=== PATIENT | male | born 1990 | race Caucasian/White ===

== ENCOUNTER 2016-03-18 12:10 | Emergency (ER) | payer SELFPAY ==
[2016-03-18 14:21] LABS: BASOPHILS 0.3 % (0.0-2.0); EOSINOPHILS 2.3 % (0-7); HEMATOCRIT 44.5 % (42.0-54.0); IMMATURE GRANULOCYTES 0.3 % (0-5); LYMPHOCYTES 23.7 % (15-50); MCH 29.8 pg (26.0-34.0); MCHC 33.7 g/dL (31.0-37.0); MCV 88.5 fL (80.0-100.0); MONOCYTES 9.2 % (2-11); NEUTROPHILS 64.2 % (40-80); PLATELET COUNT 291 10x3/uL (130-400); RBC 5.03 10x6/uL (4.20-6.10); RDW 12.8 % (11.5-14.5); WBC 15.6 10x3/uL (4.8-10.8)
[2016-03-18 14:28] LABS: ALBUMIN 4.1 g/dL (3.4-5.0); ALKALINE PHOSPHATASE 54 U/L (46-116); ALT (SGPT) 21 U/L (10-68); AMYLASE - SERUM 43 U/L (25-115); BILIRUBIN - TOTAL 0.86 mg/dL (0.2-1.3); CALC OSMOLALITY 278 mosm/kg (275-300); CALCIUM 9.1 mg/dL (8.5-10.1); CARBON DIOXIDE 29.7 mmol/L (21.0-32.0); CHLORIDE - SERUM 101 mmol/L (98-107); GLUCOSE 83 mg/dL (74-106); LIPASE 62 U/L (73-393); POTASSIUM - SERUM 3.9 mmol/L (3.5-5.1); PROTEIN - SERUM 7.9 g/dL (6.4-8.2); SODIUM 139 mmol/L (136-145); UREA NITROGEN 18 mg/dL (7-18); eGFR NON AFRICAN AMERICAN > 90 mL/min (90-120)
== END 2016-03-18 15:30 | disposition home or self-care (01) ==
LOC: D.ER 12:10
PROVIDERS: Physician Assistant
DX: A08.4 Viral intestinal infection, unspecified (principal); F17.200 Nicotine dependence, unspecified, uncomplicated

== ENCOUNTER 2016-05-04 14:25 | Inpatient (IN) | payer SELFPAY ==
[~2016-05-04] VITALS: Ht 170.2 cm; Wt 56.8 kg
[2016-05-04 17:23] LABS: HEMATOCRIT 40.2 % (42.0-54.0); HEMOGLOBIN 13.5 g/dL (13.5-17.5); MCH 29.7 pg (26.0-34.0); MCHC 33.6 g/dL (31.0-37.0); MCV 88.5 fL (80.0-100.0); MEAN PLATELET VOLUME 8.4 fL (7.4-10.4); PLATELET COUNT 257 10x3/uL (130-400); RBC 4.54 10x6/uL (4.20-6.10); RDW 12.9 % (11.5-14.5); WBC 28.3 10x3/uL (4.8-10.8)
[2016-05-04 17:27] LABS: APPEARANCE CLEAR (CLEAR); COLOR YELLOW (YELLOW); GLUCOSE NEGATIVE (NEGATIVE); KETONE NEGATIVE (NEGATIVE); LEUKOCYTE ESTERASE NEGATIVE (NEGATIVE); NITRITE NEGATIVE (NEGATIVE); PROTEIN NEGATIVE (NEGATIVE); UROBILINOGEN NORMAL (NORMAL)
[2016-05-04 17:28] LABS: BACTERIA FEW /hpf (NONE SEEN); BILIRUBIN NEGATIVE (NEGATIVE); RED CELLS - URINE 0-5 /hpf (0-5); WHITE CELLS - URINE 0-5 /hpf (0-5)
[2016-05-04 17:37] LABS: ALBUMIN 3.6 g/dL (3.4-5.0); ALKALINE PHOSPHATASE 55 U/L (46-116); ALT (SGPT) 33 U/L (10-68); BILIRUBIN - TOTAL 0.47 mg/dL (0.2-1.3); CALC OSMOLALITY 263 mosm/kg (275-300); CALCIUM 9.1 mg/dL (8.5-10.1); CARBON DIOXIDE 28.4 mmol/L (21.0-32.0); CHLORIDE - SERUM 94 mmol/L (98-107); GLUCOSE 106 mg/dL (74-106); POTASSIUM - SERUM 3.8 mmol/L (3.5-5.1); PROTEIN - SERUM 7.2 g/dL (6.4-8.2); SODIUM 132 mmol/L (136-145); UREA NITROGEN 9 mg/dL (7-18); eGFR NON AFRICAN AMERICAN > 90 mL/min (90-120)
[2016-05-04 17:40] LABS: EOSINOPHILS 2 % (0-7); LYMPHOCYTES 16 % (15-50); MONOCYTES 14 % (2-11); NEUTROPHILS 68 % (40-80); PLATELET ESTIMATE NORMAL
--- NOTE | 2016-05-04 22:35 | NUR ---
RECEIVED PATIENT FROM THE ER.
[2016-05-04 22:53] VITALS: BP 108/59; Ht 170.2 cm; Wt 56.8 kg
[2016-05-05 04:55] LABS: BASOPHILS 0.2 % (0.0-2.0); EOSINOPHILS 0.7 % (0-7); HEMATOCRIT 44.1 % (42.0-54.0); HEMOGLOBIN 14.4 g/dL (13.5-17.5); IMMATURE GRANULOCYTES 0.2 % (0-5); LYMPHOCYTES 24.5 % (15-50); MCH 29.3 pg (26.0-34.0); MCHC 32.7 g/dL (31.0-37.0); MCV 89.6 fL (80.0-100.0); MEAN PLATELET VOLUME 9.3 fL (7.4-10.4); MONOCYTES 15.7 % (2-11); NEUTROPHILS 58.7 % (40-80); PLATELET COUNT 259 10x3/uL (130-400); RBC 4.92 10x6/uL (4.20-6.10); RDW 12.9 % (11.5-14.5); WBC 20.2 10x3/uL (4.8-10.8)
[2016-05-05 05:25] LABS: CALC OSMOLALITY 275 mosm/kg (275-300); CARBON DIOXIDE 27.9 mmol/L (21.0-32.0); CHLORIDE - SERUM 99 mmol/L (98-107); CREATININE - SERUM 0.9 mg/dL (0.6-1.3); GLUCOSE 109 mg/dL (74-106); POTASSIUM - SERUM 4.1 mmol/L (3.5-5.1); SODIUM 137 mmol/L (136-145); eGFR NON AFRICAN AMERICAN > 90 mL/min (90-120)
[2016-05-05 05:26] LABS: UREA NITROGEN 14 mg/dL (7-18)
--- NOTE | 2016-05-05 08:25 | NUR ---
AWAKE AND ALERT. ORIENTED X3. NO C/O AT THIS TIME. LUNGS ARE CLEAR BUT DIMINISHED THROUGHTOUT. OCCASSIONAL DRY COUGH NOTED. SKIN IS INTACT WITHOUT REDNESS EXCEPT SCABBED AREAS TO LEFT ARM WHICH ARE REPORTED FROM A HORSE BITE. IV TO RIGHT FOREARM PATENT WITHOUT REDNESS AT ISNERTION SITE. BREAKFAST SERVED IN ROOM.
[2016-05-05 08:33] VITALS: BP 108/53
--- NOTE | 2016-05-05 10:30 | NUR ---
RESTING QUIETLY IN BED. NO C/O PAIN OR DISCOMFORT AT THIS TIME.
[2016-05-05 12:50] VITALS: BP 107/53
--- NOTE | 2016-05-05 13:55 | NUR ---
Patient Name: SANDRA NICOLE Admission Status: ER Accout number: [id number] Admission Date: 05-04-2016 : 1990 Admission Diagnosis: Attending: TACO Current LOS: 1 Anticipated DC Date: 05-08-2016 Planned Disposition: Home Primary Insurance: UNINSURED DISCOUNT PLAN Discharge Planning Comments: CM MET WITH PATIENT, FIDYAN (JUSTEN), AND BROTHER (BELÉN) REGARDING D/C NEEDS AND PLANS. PATIENTS BROTHER STATED THERE ARE 7 STEPS W/RAILS TO ENTER PATIENTS HOME AND NO STAIRS INSIDE. PATIENT STATED HE IS INDEPENDENT WITH HIS CARE AND HAS NO DME. PATIENT DOES NOT HAVE A PCP AND USES [facility] [address] FOR HIS PHARMACY. PATIENT STATED HE HAS NOT HAD HOME HEALTH BEFORE AND DOES NOT NEED IT. BROTHER STATED HE WILL BE THE ONE TO DRIVE HIM HOME WHEN DISCHARGED. CM WILL CONTINUE TO FOLLOW PATIENT WITH D/C NEEDS AND PLANS. PCP NONE [facility] [address]- [phone] BELÉN MARTINS (BROTHER) [phone] JUSTEN (NISH) [phone] [employer] Dis[employer] Specialist: Agatha Shipman Is the patient Alert and Oriented? Yes 0 * How many steps to enter\exit or inside your home? 7 W/RAILS 0 * PCP NONE 0 * Pharmacy [facility] [address] 0 * Preadmission Environment Home with Family 0 * ADLs Independent 0 * Equipment None 0 * List name and contact numbers for known caregivers / representatives who currently or will assist patient after discharge: JUSTEN DanielNISH) [phone] BELÉN MARTINS (BROTHER) [phone] 0 * Community resources currently utilized None 0 * Additional services required to return to the preadmission environment? Yes 0 * Can the patient safely return to the preadmission environment? Yes 0 * Has this patient been hospitalized within the prior 30 days at any hospital? No 0 Grand Total: 0
--- NOTE | 2016-05-05 16:13 | NUR ---
RESTING QUIETLY IN BED. NO C/O AT THIS TIME.
[2016-05-05 17:33] VITALS: BP 105/46
--- NOTE | 2016-05-05 18:41 | NUR ---
SHOWERED WITH SET UP ASSITANCE ONLY. ATE ALL OF SUPPER. NO CHANGES NOTED. DENIES NEEDS. VISITOR AT BEDSIDE.
--- NOTE | 2016-05-05 19:01 | NUR ---
FSBS PRIOR TO SUPPER WAS 241. GIVEN 4 UNITS REGULAR SUBQ PER SS. ATE ALL OF SUPPER. NO CHANGES NOTED. DENIES NEEDS.
--- NOTE | 2016-05-05 19:50 | NUR ---
PATIENT WATCHING TV WITH GUEST AT BEDSIDE AND DENIES NEEDS AT THIS TIME. BED IN LOWEST POSITION AND CALL LIGHT WITHIN REACH. ENCOURAGED PATIENT TO CALL IF HE HAS NEEDS.
[2016-05-05 22:58] VITALS: BP 99/57
[2016-05-06 02:38] VITALS: BP 108/54
[2016-05-06 06:15] VITALS: BP 118/55
[2016-05-06 06:21] LABS: ALBUMIN 2.9 g/dL (3.4-5.0); ALKALINE PHOSPHATASE 44 U/L (46-116); ALT (SGPT) 38 U/L (10-68); CALC OSMOLALITY 274 mosm/kg (275-300); CALCIUM 8.5 mg/dL (8.5-10.1); CHLORIDE - SERUM 102 mmol/L (98-107); CREATININE - SERUM 0.9 mg/dL (0.6-1.3); GLUCOSE 92 mg/dL (74-106); POTASSIUM - SERUM 4.1 mmol/L (3.5-5.1); PROTEIN - SERUM 6.5 g/dL (6.4-8.2); SODIUM 138 mmol/L (136-145); UREA NITROGEN 11 mg/dL (7-18); eGFR NON AFRICAN AMERICAN > 90 mL/min (90-120)
[2016-05-06 07:01] LABS: BASOPHILS 0.3 % (0.0-2.0); EOSINOPHILS 1.4 % (0-7); HEMATOCRIT 34.6 % (42.0-54.0); HEMOGLOBIN 11.1 g/dL (13.5-17.5); IMMATURE GRANULOCYTES 0.2 % (0-5); LYMPHOCYTES 34.3 % (15-50); MCH 28.8 pg (26.0-34.0); MCHC 32.1 g/dL (31.0-37.0); MCV 89.9 fL (80.0-100.0); MEAN PLATELET VOLUME 8.5 fL (7.4-10.4); MONOCYTES 10.9 % (2-11); NEUTROPHILS 52.9 % (40-80); PLATELET COUNT 288 10x3/uL (130-400); RBC 3.85 10x6/uL (4.20-6.10); RDW 13.3 % (11.5-14.5); WBC 13.3 10x3/uL (4.8-10.8)
--- NOTE | 2016-05-06 08:15 | NUR ---
AWAKE AND ALERT. ORIENTED X3. NO C/O THIS AM. REPORTS LEFT ARM MUCH IMPROVED WITHOUT C/O PAIN. SKIN IS INTACT WITHOUT REDNESS. IV TO RIGHT WRIST AREA IS PATENT WITHOUT REDNESS AT INSERTION SITE. DENIES NEEDS. SITTING UP IN BED EATING BREAKFAST.
[2016-05-06 08:46] VITALS: BP 118/67
--- NOTE | 2016-05-06 10:16 | NUR ---
RESTING QUIETLY IN BED. DENIES NEEDS.
[2016-05-06] MEDS ORDERED: CLEOCIN HCL300 MG PO (10:42)
--- NOTE | 2016-05-06 12:59 | NUR ---
DISCHARGED TO HOME AMBULATORY WITH FAMILY. DISCHARGE INSTRUCTIONS GIVEN BOTH VERBALLY AND WRITTEN. ALL QUESTIONS ANSWERED. PATIENT VERBALIZED UNDERSTANDING OF SAME. NEEDED PRESCRIPTIONS EFAXED TO PHARMACY OF CHOICE. IV TO RIGHT FOREARM/WRIST D/C WITH CATHETER INTACT.
== END 2016-05-06 13:00 | disposition home or self-care (01) | DRG 153 ==
LOC: D.ER 14:25 → OBSVTIME 21:00 → D.MS 21:00
PROVIDERS: Family Medicine; Nurse Practitioner Family; ADMIT Family Medicine
DX: J11.1 Influenza due to unidentified influenza virus with other respiratory manifestations (principal); F17.203 Nicotine dependence unspecified, with withdrawal; J45.909 Unspecified asthma, uncomplicated